=== PATIENT | female | born 1975 | race Two or more races ===

== ENCOUNTER 2022-07-10 06:23 | Day surgery (SDC) | payer BC ==
[2022-07-08 17:12] VITALS: BMI 29.5
[2022-07-10] MEDS ORDERED: PROPOFOL 20 ML ONE (07:04)
[2022-07-10] MEDS ORDERED: MIDAZOLAM HCL 2 MG/2 ML SINGLE DOSE VIAL ONE (07:04)
[2022-07-10] MEDS ORDERED: BUPIVACAINE HCL/PF 2.5 MG/ML - 30 ML VIAL IJ ONE (07:04)
[2022-07-10] MEDS ORDERED: EPINEPHrine 1:1,000 1,000 MCG/ML ML ONE (07:10)
[2022-07-10] MEDS ORDERED: ACETAMINOPHEN 325 MG TABLET (FP) PO PRN (07:12)
[2022-07-10] MEDS ORDERED: oxyCODONE HCL 5 MG TABLET PO PRN ×2 (07:12)
[2022-07-10] MEDS ORDERED: ONDANSETRON 4 MG/2 ML VIAL IVPUSH PRN (07:12)
[2022-07-10] MEDS ORDERED: LACTATED RINGERS SOLUTION 1,000 ML IV SCH (07:15)
[2022-07-10] MEDS ORDERED: ceFAZolin SODIUM 1 GM VIAL ONE ×2 (07:48)
[2022-07-10] MEDS ORDERED: DEXAMETHASONE SOD PHOSPHATE 4 MG/1 ML VIAL ONE (07:48)
[2022-07-10] MEDS ORDERED: FENTANYL CITRATE/PF 50 MCG/ML VIAL ONE (08:44)
[2022-07-10 10:15] VITALS: RESP 16; TEMP 97.9
[2022-07-10 11:43] VITALS: BP 107/67; PULSE 66
== END 2022-07-10 10:30 | disposition home or self-care (01) ==
LOC: FASU 06:23
PROVIDERS: ATTEND Orthopaedic Surgery
PROC: 0SBC4ZZ Excision of Right Knee Joint, Percutaneous Endoscopic Approach (ICD-10-PCS; 2022-07-10)
PROC: 0SBC4ZZ Excision of Right Knee Joint, Percutaneous Endoscopic Approach (ICD-10-PCS; principal; 2022-07-10 08:00)
DX: S83.241A Other tear of medial meniscus, current injury, right knee, initial encounter (principal); S83.281A Other tear of lateral meniscus, current injury, right knee, initial encounter; S83.8X1A Sprain of other specified parts of right knee, initial encounter; M65.861 Other synovitis and tenosynovitis, right lower leg; X58.XXXA Exposure to other specified factors, initial encounter; Y93.9 Activity, unspecified; Y92.9 Unspecified place or not applicable
CPT/HCPCS: 81025; 94760